=== PATIENT | male | born 1970 | race Caucasian/White ===

== ENCOUNTER → 2020-03-03 11:19 | Outpatient (CLI) | payer OTHER, SELFPAY ==
[2020-03-05 08:54] LABS: Covid-19 Nasal PCR Sendout Lex NOT DETECTED
--- NOTE | 2020-03-05 11:23 | PC.NURSE ---
0900-pt and provider notified of negative COVID 19 results.
== END ==
PROVIDERS: Visit Provider Internal Medicine Adolescent Medicine
DX: Z03.818 Encounter for observation for suspected exposure to other biological agents ruled out (principal)

== ENCOUNTER → 2020-10-31 08:54 | Outpatient (CLI) | payer OTHER, SELFPAY ==
[2020-10-31 09:27] LABS: Basophils # 0.1 K/mm3 (0-0.2); Basophils % 1.1 % (0.1-2.0); Eosinophils # 0.1 K/mm3 (0.0-0.4); Eosinophils % 1.6 % (0.1-12.0); Hematocrit 51.8 % (42.0-52.0); Hemoglobin 17.5 g/dL (14.1-18.0); Lymphocytes # 2.7 K/mm3 (0.7-4.5); Lymphocytes % 35.5 % (10-50); Mean Corpuscular HGB Conc 33.8 g/dL (31.8-35.4); Mean Corpuscular Hemoglobin 31.4 pg (27.0-31.2); Mean Corpuscular Volume 92.8 fl (80-94); Mean Platelet Volume 7.3 fl (7.4-10.4); Monocytes # 0.5 K/mm3 (0.1-1.0); Neutrophils # 4.2 K/mm3 (1.8-7.8); Neutrophils % 54.9 % (37.0-80.0); Platelet Count 310 K/mm3 (142-424); Red Blood Count 5.58 M/mm3 (4.60-6.20); Red Cell Distribution Width 13.2 % (11.5-17.5); White Blood Count 7.6 K/mm3 (4.8-10.8)
[2020-10-31 10:00] LABS: Alanine Aminotransferase 75 U/L (12-78); Albumin Level 4.7 g/dl (3.5-5.0); Albumin/Globulin Ratio 1.4 (1.1-1.8); Alkaline Phosphatase 71 U/L (38-126); Anion Gap 14.2 mEq/L (5-15); Aspartate Amino Transferase 53 U/L (17-59); Bilirubin,Total 1.5 mg/dl (0.2-1.3); Blood Urea Nitrogen 11 mg/dl (9-20); Calcium 9.9 mg/dl (8.4-10.2); Carbon Dioxide 28 mmol/L (22.0-30.0); Chloride 102 mmol/L (98-107); Chol/HDL Ratio 4.4 (1-3.5); Cholesterol 216 mg/dl (140-200); Estimated Glomerular Filt Rate 102 ml/min (>60); GFR (African American) 123 ML/MIN (>60); Globulin 3.3 g/dL (1.3-3.2); Glucose 100 mg/dl (74-100); HDL Cholesterol 49 mg/dl (40-60); Magnesium 2.1 mg/dl (1.6-2.3); Phosphorous 3.9 mg/dl (2.5-4.5); Potassium 4.2 mmoL/L (3.5-5.1); Sodium 140 mmol/L (136-145); Triglycerides 151 mg/dl (30-150); VLDL Cholesterol 30 mg/dL (0-40)
== END ==
PROVIDERS: Visit Provider Family Medicine
DX: Z00.00 Encounter for general adult medical examination without abnormal findings (principal); R00.2 Palpitations; Z13.1 Encounter for screening for diabetes mellitus; Z13.220 Encounter for screening for lipoid disorders
CPT/HCPCS: 36415; 80053; 80061; 83735; 84100; 84443; 85025

== ENCOUNTER 2021-07-13 09:44 | Outpatient (RCR) | payer OTHER, SELFPAY | END 2021-07-13 09:50 | disposition home or self-care (01) | LOC: OT 09:44 | PROVIDERS: Visit Provider Physical Medicine & Rehabilitation | DX: M25.512 Pain in left shoulder (principal) | CPT/HCPCS: 97014; 97140; 97166; G0283 ==

== ENCOUNTER → 2021-07-17 15:52 | Outpatient (CLI) | payer OTHER, SELFPAY | PROVIDERS: PCP Family Medicine; Visit Provider Physician Assistant | DX: Z01.812 Encounter for preprocedural laboratory examination (principal); Z11.52 Encounter for screening for COVID-19; S42.002D Fracture of unspecified part of left clavicle, subsequent encounter for fracture with routine healing | CPT/HCPCS: U0003 ==

== ENCOUNTER → 2021-08-12 11:06 | Outpatient (CLI) | payer OTHER, SELFPAY ==
--- NOTE | 2021-08-12 11:07 | NM_ITS ---
APPROVED REPORT Exam: Nuclear Stress Test Indication: A-FIB, HYPERLIPIDEMIA, FM HX, C.P., PALPATATIONS Patient Location: Outpatient Stress Tech: Maria De Jesus Martinez [place] Tech:Mckenna Jefferson ABDELRAHMAN RT(R)(N) Ht: 5 ft 8 in Wt: 211 lbs HR: 96 bpm BP: 135/96 mmHg BSA: 2.09 m2 BMI: 32.0 History: A-FIB, HYPERLIPIDEMIA, FM HX, C.P., PALPATATIONS PT COULD NOT DO PRONE IMAGES DUE TO BROKEN CLAVICLE AND RECENT SURGERY TO LT CLAVICLE JAGDEEP WAS HELD DOWN TO SIDE FOR ALL IMAGES Procedure: Patient received a 0.4 mg of intravenous Lexiscan, resting heart rate 96 bpm, resting blood pressure 135/96 mmHg, with Lexiscan maximum heart rate achived was 109 bpm which is Less than 85 % of the maximum predicted heart rate and blood pressure was 150/95 mmHg. With Lexiscan, patient denied any complaint of chest pain. Electrocardiogram Resting electrocardiogram shows sinus rhythm, with Lexiscan there is less than 1.[address] segment depression noted from the baseline EKG. The EKG portion of the Lexiscan is nondiagnostic. Cardiac Stress and Resting SPECT Images: Cardiac Stress and Resting SPECT images were obtained using technetium 99m Myoview 32.2 mCi stress and 10.28 mCi at rest. Gated SPECT for analysis of segmental wall motion and calculation of the ejection fraction also done. Prone images were not obtained due to patient factors. Cardiac stress and resting SPECT images show a fixed defect in the inferior wall with normal contractility is likely secondary to soft tissue attenuation, in addition there is another fixed defect involving the anterior apical wall with moderate hypokinesis is likely secondary to nontransmural myocardial scarring without significant alfredito-infarct ischemia. Computer derived ejection fraction is 43% with moderate anterior apical wall hypokinesis, right ventricle is mildly enlarged with normal contractility. Conclusion: 1. The EKG portion of the Lexiscan is nondiagnostic. 2. Scintigraphic evidence of nontransmural myocardial scarring involving the anterior apical wall, computer derived ejection fraction 43% with moderate anterior wall hypokinesis, right ventricle is mildly enlarged with normal contractility. 3. Abnormal Lexiscan Myoview study. Electronically signed by : Cleveland Sales MD 08/13/2021 10:56:52
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
--- NOTE | 2021-08-12 13:25 | CA_ITS ---
APPROVED REPORT Exam: Pharmacologic Technologist: Jenae Hameed, Ht: 5 ft 8 in Wt: 228 lbs BSA: 2.16 m2 HR: 96 bpm BP: 135/96 mmHg Indications: Afib Medical History Medications: Metoprolol,,,,, Gabapentin,,,,, Pantoprazole,,,,, Atorvastatin,,,,, TAMSULOSIN,,,,, Albuterol,,,,, Tramadol,,,,, AmiTRIPTYLINE,,,,, Stress Test Details Test: LEXISCAN HR Resting HR: 100 bpm Max Heart Rate (APMHR): 168.871674 bpm Max HR Achieved: 116 bpm Target HR (85% APMHR): 142.110000 bpm % of APMHR: 69.05 Recovery HR: 99 bpm BP Resting BP: 135/96 mmHg Max BP: 153/85 mmHg Recovery BP: 136.0/89.0 mmHg ECG Resting ECG: NSR, normal Clinical Exercise duration: 04:01 min Highest Stage Achieved: Stress ECG Conclusion Symptoms: Mild SOA and lightheadedness. No CP. Arrhythmias/Ectopy: Occ isolated PVC's. ST-T Changes: NS T wave changes. Conclusion: Unremarkable Lexiscan stress. Myoview images reported separately. Test Summary REST . . . . . . . Sitting REST 03:56 . . 100 . 135/ 96 . . Stage 1 . . . . . . . Cardiolite injected Stage 1 01:00 . . 110 . . . . Stage 2 01:00 . . 112 . 150/ 95 . . Stage 3 01:00 . . 98 . 138/ 93 . . Stage 4 01:00 . . 103 . 153/ 85 . . Stage 4 01:01 . . 103 . 153/ 85 . Stop exercise at 04:01 RECOVERY 01:00 . . 101 . 131/ 93 . . RECOVERY 02:00 . . 99 . 131/ 93 . . RECOVERY 03:00 . . 100 . 136/ 89 . . RECOVERY 03:17 . . 99 . 136/ 89 . . Electronically signed by : Cleveland Sales MD 08/13/2021 10:51:53
== END ==
PROVIDERS: PCP Family Medicine; Visit Provider Urology
DX: I48.0 Paroxysmal atrial fibrillation (principal); R00.2 Palpitations; E78.5 Hyperlipidemia, unspecified; Z87.891 Personal history of nicotine dependence; Z82.49 Family history of ischemic heart disease and other diseases of the circulatory system
CPT/HCPCS: 78452; 93017; 93270; 93306; A9502; J2785

== ENCOUNTER → 2021-08-30 09:49 | Outpatient (CLI) | payer OTHER, SELFPAY ==
[2021-08-30 10:18] LABS: Basophils # 0.1 K/mm3 (0-0.2); Basophils % 1.4 % (0.1-2.0); Eosinophils # 0.3 K/mm3 (0.0-0.4); Eosinophils % 3.4 % (0.1-12.0); Hematocrit 47.9 % (42.0-52.0); Hemoglobin 16.1 g/dL (14.1-18.0); Lymphocytes # 2.8 K/mm3 (0.7-4.5); Lymphocytes % 30.7 % (10-50); Mean Corpuscular HGB Conc 33.6 g/dL (31.8-35.4); Mean Corpuscular Hemoglobin 31.5 pg (27.0-31.2); Mean Corpuscular Volume 93.6 fl (80-94); Mean Platelet Volume 7.4 fl (7.4-10.4); Monocytes # 0.6 K/mm3 (0.1-1.0); Neutrophils # 5.4 K/mm3 (1.8-7.8); Neutrophils % 58.5 % (37.0-80.0); Platelet Count 386 K/mm3 (142-424); Red Blood Count 5.11 M/mm3 (4.60-6.20); Red Cell Distribution Width 13.1 % (11.5-17.5); White Blood Count 9.2 K/mm3 (4.8-10.8)
[2021-08-30 12:04] LABS: Anion Gap 13.8 mEq/L (5-15); Blood Urea Nitrogen 5 mg/dl (9-20); Calcium 9.4 mg/dl (8.4-10.2); Carbon Dioxide 29 mmol/L (22.0-30.0); Chloride 103 mmol/L (98-107); Estimated Glomerular Filt Rate 141 ml/min (>60); GFR (African American) 171 ML/MIN (>60); Glucose 89 mg/dl (74-100); Potassium 4.8 mmoL/L (3.5-5.1); Sodium 141 mmol/L (136-145)
== END ==
PROVIDERS: Visit Provider Nurse Practitioner Family
DX: Z01.812 Encounter for preprocedural laboratory examination (principal); Z11.52 Encounter for screening for COVID-19; R06.00 Dyspnea, unspecified; I20.8 Other forms of angina pectoris; I42.9 Cardiomyopathy, unspecified; R00.2 Palpitations; R42 Dizziness and giddiness; I10 Essential (primary) hypertension; R93.1 Abnormal findings on diagnostic imaging of heart and coronary circulation; R94.31 Abnormal electrocardiogram [ECG] [EKG]; R94.39 Abnormal result of other cardiovascular function study; I63.9 Cerebral infarction, unspecified; E66.9 Obesity, unspecified; Z68.33 Body mass index [BMI] 33.0-33.9, adult
CPT/HCPCS: 36415; 80048; 85025; C9803; U0003; U0005

== ENCOUNTER 2021-08-31 08:19 | Day surgery (SDC) | payer OTHER, SELFPAY ==
[2021-08-31] VITALS (14 sets, daily range): BP systolic 109–179; BP diastolic 65–99; PULSE 66–80; RESP 16–18; TEMP 36.3; O2SAT 92–98; BMI 33.3
--- NOTE | 2021-08-31 07:20 | IR_ITS ---
APPROVED REPORT Patient Location: Outpatient PROCEDURES Left heart catheterization Left ventriculogram Selective coronary angiogram INDICATION High risk abnormal Myoview, Chest pain Informed consent was obtained prior to the procedure. COMPLICATIONS NONE Estimated Blood Loss: LESS THAN 10 ML TECHNIQUE One percent lidocaine used to anesthetize the right anterior aspect of the wrist. The right radial artery was accessed via the Seldinger technique. A 6 Uzbek sheath was placed in the right radial artery. 2.5 mg of verapamil, 800 mcg of nitroglycerin, 1mg Lidocaine and 5000 U Heparin were given through the arterial sheath. The Poppa catheter and AR-2 guide catheter were also used to perform left heart catheterization, left ventriculogram and selective coronary angiogram. At the end of the procedure the sheath was removed good hemostasis was achieved using Traclet band, patient was transferred to the postop holding area in stable condition. ANGIOGRAPHIC RESULTS The left main artery Normal The left anterior descending artery Has a proximal 10 to 20% smooth stenosis and is unusual in its distal segment and then it stops short of the apex The circumflex artery Gives rise to a moderate ramus intermedius which has mild 10% luminal irregularities in the proximal segment with mild disease nothing greater than 10% in the nondominant circumflex artery The right coronary artery Is a dominant vessel and has a mid vessel smooth 20% concentric stenosis The NAGY ventriculogram reveals Slight LV dilatation with ejection fraction of 50% The left ventricular end-diastolic pressure 20 mmHg IMPRESSION Mild nonflow limiting coronary disease as described above Slight left ventricular dilatation with ejection fraction 50% Mildly elevated LVEDP PLAN 1. Medical management Electronically signed by : Giovanni Yu MD 08/31/2021 11:15:27
== END 2021-08-31 14:16 | disposition hospice, home (50) ==
LOC: CATHLAB 08:21
PROVIDERS: PCP Family Medicine; Visit Provider Internal Medicine
DX: I20.8 Other forms of angina pectoris (principal); I42.9 Cardiomyopathy, unspecified; R93.1 Abnormal findings on diagnostic imaging of heart and coronary circulation; R94.31 Abnormal electrocardiogram [ECG] [EKG]; I48.0 Paroxysmal atrial fibrillation
CPT/HCPCS: 93458; 99152; C1725; C1760; C1769; J1644; Q9967

== ENCOUNTER 2021-09-13 09:00 | Outpatient (RCR) | payer OTHER, SELFPAY | END 2021-09-13 09:05 | disposition home or self-care (01) | LOC: PT 09:00 | PROVIDERS: PCP Family Medicine; Visit Provider Physician Assistant | DX: S42.002G Fracture of unspecified part of left clavicle, subsequent encounter for fracture with delayed healing (principal); M89.8X1 Other specified disorders of bone, shoulder | CPT/HCPCS: 20560; 97010; 97014; 97016; 97110; 97140; 97163; G0283 ==

== ENCOUNTER → 2021-11-16 14:15 | Outpatient (CLI) | payer OTHER, SELFPAY | PROVIDERS: PCP Family Medicine; Visit Provider Nurse Practitioner | DX: Z20.822 Contact with and (suspected) exposure to COVID-19 (principal) | CPT/HCPCS: C9803; U0003; U0005 ==

== ENCOUNTER 2021-12-02 08:00 | Outpatient (RCR) | payer OTHER, SELFPAY | END 2021-12-02 08:05 | disposition home or self-care (01) | LOC: PT 08:00 | PROVIDERS: PCP Family Medicine; Visit Provider Physician Assistant | DX: S42.002G Fracture of unspecified part of left clavicle, subsequent encounter for fracture with delayed healing (principal) | CPT/HCPCS: 20561; 97010; 97014; 97016; 97035; 97110; 97140; 97163; 97164; G0283 ==

== ENCOUNTER 2021-12-04 14:47 | Emergency (ER) | payer OTHER, SELFPAY ==
[2021-12-04 16:25] VITALS: BP 0/0; PULSE 0; RESP 0; TEMP -17.7; TEMP 0
== END 2021-12-04 16:27 | disposition left against medical advice (07) ==
PROVIDERS: Emergency Provider Nurse Practitioner Family; PCP Family Medicine
DX: Z53.21 Procedure and treatment not carried out due to patient leaving prior to being seen by health care provider (principal)

== ENCOUNTER → 2021-12-04 16:45 | Outpatient (CLI) | payer OTHER, SELFPAY | PROVIDERS: Visit Provider Nurse Practitioner Family | DX: U07.1 COVID-19 (principal) | CPT/HCPCS: C9803; U0003; U0005 ==

== ENCOUNTER 2022-09-23 06:00 | Emergency (ER) | payer OTHER, SELFPAY ==
[2022-09-23] VITALS (8 sets, daily range): BP systolic 133–149; BP diastolic 88–100; PULSE 73–101; RESP 16–18; TEMP 36.8–37; O2SAT 95–99; BMI 32.2
--- NOTE | 2022-09-23 06:05 | CT_ITS ---
FINAL REPORT CLINICAL HISTORY: right sided abd pain, nausea, bloating FINDINGS: CT OF THE ABDOMEN AND PELVIS WITH CONTRAST Axial CT images of the abdomen and pelvis were obtained after the administration of intravenous contrast. Coronal reformatted images were also obtained and reviewed.This study was performed with techniques to keep radiation doses as low as reasonably achievable (ALARA). Individualized dose reduction techniques using automated exposure control or adjustment of mA and/or kV according to the patient's size were employed. Abdomen: There is mild bibasilar atelectasis. There is a small hiatal hernia. The heart is normal in size. The liver has mild fatty infiltration. There are multiple gallstones. There is mild nonspecific gallbladder wall thickening. The spleen is unremarkable. No adrenal mass is present. The pancreas has an unremarkable appearance. There are several small nonobstructing lower pole right renal stones measuring 5 mm or less. There is a 9 mm nonobstructing stone in the lower pole of the left kidney. A left renal cyst measures up to 17 mm. There is no hydronephrosis. The aorta is normal in caliber. There is no free fluid or adenopathy. There is a small umbilical hernia containing fat. Pelvis: The appendix is not well-visualized. The urinary bladder is unremarkable. No inflammatory process is seen. There is no evidence of mass or adenopathy. There is no evidence of bowel obstruction. IMPRESSION: Cholelithiasis with mild nonspecific gallbladder wall thickening. Bilateral nephrolithiasis without hydronephrosis. Left renal cyst. Mild fatty infiltration of the liver. Reviewed, Interpreted and Dictated by George Melchor III, MD Transcribed by Kenny Santana Authenticated and . [facility]
--- NOTE | 2022-09-23 06:19 | HMH.EDABDPAI ---
Discharge Plan Disposition Patient Disposition: Home, Self-Care Condition: Good Referrals Follow up/Referrals: Thaddeus Hanna MD [Primary Care Provider] - See instructions George Cheng MD [Staff Physician] - See instructions Activity Restrictions/Add. Instructions Additional Instructions/Restrictions: At this time was felt you are safe to be discharged from the emergency department. If new or worsening symptoms please do not hesitate to return for continued evaluation. Please take your medications as prescribed. Please call and schedule an appointment for general surgery evaluation in the coming days at your earliest convenience for continued evaluation. Clinical Impressions Clinical Impression: Symptomatic cholelithiasis Stand Alone Forms Stand Alone Forms: Work/School Release Instructions Patient Instructions: DI for Acute Abdominal Pain Discharge ED Provider: Corey Todd Abdominal Pain HPI <Analy Roe MD - Last Filed: 10/04/22 08:07> General Chief Complaint: Abdominal Pain Stated Complaint: upper abd pain Time Seen by Provider: 09/23/22 06:19 History of Present Illness HPI narrative: Mr. Travis is a 50-year-old male past medical history for appendectomy, HTN, HLD, CAD, A. fib, nephrolithiasis status post lithotripsy presenting to the emergency department with acute onset right-sided abdominal pain. Patient denies any bowel changes or urinary symptoms. No fevers, chills or other infectious-like symptoms. Denies any sick contacts or known COVID exposures. No bloody stools. No episodes of emesis. Denies any recent trauma to the abdomen. Of note patient reports feels similar to prior renal stones. MD complaint: abdominal pain Onset (ago): day(s) Consistency: constant Severity: severe Quality: sharp Relieving factors: nothing Exacerbating factors: nothing Associated symptoms: nausea Related Data Allergies Allergy/AdvReac Type Severity Reaction Status Date / Time Iodine and Iodide Containing Allergy Rash Verified 09/27/22 08:50 Produc PFSH <Analy Roe MD - Last Filed: 10/04/22 08:07> PFSH Medical History (Updated 09/27/22 @ 09:19 by George Cheng MD) Abnormal cardiovascular stress test Abnormal echocardiogram Abnormal electrocardiography Atypical angina Cardiomyopathy Dizziness Dyspnea History of fracture of clavicle Obesity Palpitations Surgical History (Updated 09/27/22 @ 08:51 by NABOR Clemons) History of appendectomy Social History Smoking Status: Current every day smoker second hand exposure: No alcohol intake: never current occupational status: employed Travel in the last 8 weeks: None household members: spouse housing: house current occupational exposures/hazards: Yes caffeine: Yes <Analy Roe MD - Last Filed: 10/04/22 08:07> ROS Obtained: Yes All systems reviewed & no additional complaints except as documented Physical Exam <Analy Roe MD - Last Filed: 10/04/22 08:07> General General appearance: alert and in no apparent distress Head Head exam: atraumatic and normocephalic Eye Eye exam: Present normal appearance and EOMI ENT ENT exam: Present normal exam and normal oropharynx Neck Neck exam: Present normal inspection and full ROM Chest Chest inspection: Present normal inspection and symmetric chest wall rise Respiratory Respiratory exam: Present normal lung sounds bilaterally Cardiovascular Cardiovascular exam: Present regular rate and normal rhythm Abdominal Exam Abdominal exam: Present soft and tenderness (Right-sided abdominal tenderness. Nonperitonitic. No rebound or guarding.) Back Exam Back exam: Present normal inspection and full ROM Neurological Exam Neurological exam: Present alert and oriented X3 Skin Skin exam: Present warm and normal color Medical Decision Making <Analy Roe MD - Last Filed: 10/04/22 08:07> Medical Records [facility]
[2022-09-23 06:28] LABS: Microscopic, Urine URINE MICROSCOPIC (MICROSCOPIC)
[2022-09-23 06:34] LABS: Appearance,Urine CLEAR (Clear); Bilirubin,Urine Negative (Negative); Blood, Urine Negative (Negative); Color,Urine DK YELLOW (Yellow); Glucose,Urine (UA) Negative (Negative); Ketones,Urine Negative (Negative); Leukocyte Esterase,Urine Negative (Negative); Nitrate,Urine Negative (Negative); PH,Urine 6.5 (5.0-8.5); Protein,Urine Negative (Negative); Specific Gravity, Urine 1.025 (1.005-1.030); Urobilinogen,Urine 0.2 EU/dl (0.2)
[2022-09-23 06:38] LABS: Alanine Aminotransferase 62 U/L (12-78); Albumin Level 5.1 g/dl (3.5-5.0); Albumin/Globulin Ratio 1.5 (1.1-1.8); Alkaline Phosphatase 96 U/L (38-126); Anion Gap 17.9 mEq/L (5-15); Aspartate Amino Transferase 57 U/L (17-59); Bilirubin,Total 1.5 mg/dl (0.2-1.3); Blood Urea Nitrogen 8 mg/dl (9-20); Carbon Dioxide 28 mmol/L (22.0-30.0); Chloride 101 mmol/L (98-107); Creatinine Clearance Estimated 166 mL/min (50-200); Estimated Glomerular Filt Rate 118 ml/min (>60); GFR (African American) 143 ML/MIN (>60); Globulin 3.5 g/dL (1.3-3.2); Glucose 120 mg/dl (74-100); Lipase 107 U/L (23-300); Potassium 3.9 mmoL/L (3.5-5.1); Sodium 143 mmol/L (136-145); Total Protein,Serum 8.6 g/dl (6.3-8.2)
[2022-09-23 06:39] LABS: Lactic Acid 2.8 mmol/L (0.7-2.1)
[2022-09-23 06:56] LABS: Amorphous Sediment,Urine 1+ /lpf; Bacteria,Urine Trace /lpf; RBC,Urine Occasional #/hpf (0-3)
--- NOTE | 2022-09-23 07:03 | PC.NURSE ---
pt to ct at this time
[2022-09-23 07:13] LABS: Basophils # 0.2 K/mm3 (0-0.2); Basophils % 1.2 % (0.1-2.0); Eosinophils # 0.1 K/mm3 (0.0-0.4); Hematocrit 51.7 % (42.0-52.0); Hemoglobin 17.1 g/dL (14.1-18.0); Lymphocytes # 2.4 K/mm3 (0.7-4.5); Lymphocytes % 17.1 % (10-50); Mean Corpuscular Hemoglobin 31.2 pg (27.0-31.2); Mean Corpuscular Volume 94.6 fl (80-94); Mean Platelet Volume 7.8 fl (7.4-10.4); Monocytes # 0.6 K/mm3 (0.1-1.0); Monocytes % 4.1 % (1.7-9.3); Neutrophils # 10.9 K/mm3 (1.8-7.8); Neutrophils % 76.6 % (37.0-80.0); Platelet Count 369 K/mm3 (142-424); Red Blood Count 5.46 M/mm3 (4.60-6.20); Red Cell Distribution Width 13.3 % (11.5-17.5); White Blood Count 14.2 K/mm3 (4.8-10.8)
--- NOTE | 2022-09-23 08:00 | US_ITS ---
FINAL REPORT CLINICAL HISTORY: RUQ pain FINDINGS: ULTRASOUND RIGHT UPPER QUADRANT Sonographic imaging of the right upper quadrant was obtained. The pancreas is partially obscured. There is increased echogenicity of the liver consistent with fatty infiltration. There are echogenic foci in the gallbladder, some of these likely show shadowing and are consistent with stones. There may also be gallbladder polyps. There is no gallbladder wall thickening. There is no biliary ductal dilatation. The common duct is normal at 5 mm. The right kidney measures 11.7 cm in length. There are presumed stone in the lower pole. IMPRESSION: Fatty liver. Echogenic foci in the gallbladder, some likely consistent with gallstones and some may be polyps. Presumed right renal stones. Reviewed, Interpreted and Dictated by George Melchor III, MD Transcribed by Jade Watson Authenticated and [facility]
--- NOTE | 2022-09-23 08:00 | PC.NURSE ---
ED MD AT BEDSIDE TO DISCUSS POC AND DISCHARGE
--- NOTE | 2022-09-23 08:07 | PC.NURSE ---
PT TO US AT THIS TIME VIA WC
--- NOTE | 2022-09-23 08:47 | PC.NURSE ---
PT RETURNED FROM US
--- NOTE | 2022-09-23 08:58 | PC.NURSE ---
DR. VALDEZ AT BEDSIDE TO EVALUATE PT
--- NOTE | 2022-09-23 09:16 | PC.NURSE ---
ROUNDED ON PT, SWABBED FOR COVID AND FLU. PT WITHOUT NEEDS AT THIS TIME
[2022-09-23 09:17] LABS: Coronavirus 19, PCR Not Detected (NotDetected); Influenza A, PCR Not Detected (NotDetected); Influenza B, PCR Not Detected (NotDetected)
--- NOTE | 2022-09-23 09:26 | PC.NURSE ---
SAROJ LAI explained results to pt at BS and POC. Pt doing PO challenge with grant mist at this time.
--- NOTE | 2022-09-23 10:11 | PC.NURSE ---
pt tolerated PO intake, denies pain or nausea at this time, notified ER
[2022-09-23 10:25] LABS: Reflex Lactic Add Lactic Reflex
== END 2022-09-23 10:25 | disposition home or self-care (01) ==
PROVIDERS: Student in an Organized Health Care Education/Training Program; Emergency Provider Emergency Medicine; PCP Family Medicine
DX: K80.80 Other cholelithiasis without obstruction (principal); Z87.19 Personal history of other diseases of the digestive system; Z72.0 Tobacco use; I10 Essential (primary) hypertension; E78.5 Hyperlipidemia, unspecified; I25.10 Atherosclerotic heart disease of native coronary artery without angina pectoris; I48.91 Unspecified atrial fibrillation
CPT/HCPCS: 74177; 76705; 80053; 81001; 83605; 83690; 85025; 96365; 96375; 96376; 99284; C9803; Q9967; U0003; U0005

== ENCOUNTER 2024-11-10 13:33 | Emergency (ER) | payer BC, SELFPAY ==
[2024-11-10 14:11] VITALS: BP 143/99; PULSE 103; RESP 18; TEMP 37.1; O2SAT 97; BMI 31.8
--- NOTE | 2024-11-10 14:19 | EXP.UTC ---
Discharge Plan Disposition Patient Disposition: Home, Self-Care Condition: Good Prescriptions Prescriptions: New guaifenesin 400 mg tablet 400 mg PO Q4H PRN (Reason: cough) Qty: 60 0RF Referrals Follow up/Referrals: Thaddeus Hanna MD [Primary Care Provider] - See instructions Activity Restrictions/Add. Instructions Additional Instructions/Restrictions: Take medication as prescribed. Tylenol/Ibuprofen as needed for pain/fever. Call back in morning for flu/covid results. If symptoms persist or worsen, return to clinic/PCP. If you become short of air, go to the ER. Clinical Impressions Clinical Impression: Viral upper respiratory tract infection Stand Alone Forms Stand Alone Forms: Work/School Release Instructions Patient Instructions: DI for Viral Upper Respiratory Infection -- Adult Print Language Print Language: Stateless Discharge ED Provider: Earnestine Ansari [facility] [place] HPI General Stated complaint: congestion, cough Mode of Arrival: Ambulatory Source of Information: Patient Time Seen by Provider: 11/10/24 14:19 Description of Symptoms (Recalled from Triage Doc. by RN): BAD COUGH, CONGESTION, FEVER OF 102, EXP TO FLU A BY FAMILY HEENT Symptoms (Recalled from RN notes): Yes Resp Symptoms (Recalled from RN notes): Yes Skin Symptoms (Recalled from RN notes): No MS Symptoms (Recalled from RN notes): No Functional Status (Recalled from RN notes): WNL History of Present Illness Provider Complaint: Pt report that he started having cough and fever last night. He reports a fever up to 102 and has taken Tylenol. He reports family has flu. Related Data Previous Rx's ?Medication ?Instructions ?Recorded guaifenesin 400 mg tablet 400 mg PO Q4H PRN cough #60 tabs 11/10/24 Allergies Allergy/AdvReac Type Severity Reaction Status Date / Time Iodine and Iodide Containing Allergy Rash Verified 09/27/22 08:50 Produc Worker's Comp Is this a Worker's Comp case?: No [facility] Disclaimer: The information contained in this section may have been updated after the patient was seen, as this information can be updated by other users. Medical History (Updated 11/10/24 @ 14:31 by Earnestine Ansari APRN) History of fracture of clavicle Atypical angina Obesity Dizziness Cardiomyopathy Abnormal electrocardiography Abnormal echocardiogram Palpitations Abnormal cardiovascular stress test Dyspnea Surgical History (Updated 09/27/22 @ 08:51 by NABOR Clemons) History of appendectomy Social History Smoking Status: Current every day smoker second hand exposure: No alcohol intake: never current occupational status: employed Travel in the last 8 weeks: None household members: spouse housing: house current occupational exposures/hazards: Yes caffeine: Yes Have you lived/traveled outside [place] in past 30 days?: No Contact w/someone who lives/traveled outside [place] past 30 days?: No Exposure to someone with infectious disease in past 14 days?: No Do you have a fever (greater than 100.4 F or 38 C)?: No Have you tested positive for COVID-19: No Exposed to someone with COVID-19 in past 14 days?: No Do you have a sore throat?: Yes Do you have a cough?: Yes Do you have any weakness?: No Do you have any diarrhea?: No Are you experiencing any unusual bleeding?: No Do you have any muscle aches/pain?: No Do you have any abdominal pain?: No Are you experiencing loss of taste or smell?: No ROS Obtained: Yes All systems reviewed & no additional complaints except as documented Constitutional Constitutional: Reports system reviewed and no additional complaints, except as documented, Reports chills, Reports fever(s) and Reports malaise Eyes Eyes: Reports system reviewed and no additional complaints, except as documented ENT Ears, Nose, Mouth, and Throat: Reports system reviewed and no additional complaints, except as documented and Reports nasal discharge Cardiovascular Cardiovascular: Reports system reviewed and no additional complaints, except as documented Respiratory Respiratory: Reports system reviewed and no additional complaints, except as documented and Reports non-productive cough Gastrointestinal Gastrointestingal: Reports system reviewed and no additional complaints, except as documented Genitourinary Male Genitourinary: Reports system reviewed and no additional complaints, except as documented Musculoskeletal Musculoskeletal: Reports system reviewed and no additional complaints, except as documented Integumentary/Breasts Skin/Breast: Reports system reviewed and no additional complaints, except as documented Neurologic Neurologic: Reports system reviewed and no additional complaints, except as documented Endocrine Endocrine: Reports system reviewed and no additional complaints, except as documented Hematologic/Lymphatic Henatologic/Lymphatic: Reports system reviewed and no additional complaints, except as documented Allergic/Immunologic Allergic/Immunologic: Reports system reviewed and no additional complaints, except as documented Physical Exam General General appearance: alert Comment: ill appearing Head Head exam: atraumatic and normocephalic Eye Eye exam: Present normal appearance Expanded ENT Exam External ear exam: Present normal external inspection Nasal speculum exam: Bilateral: normal Mouth exam: Present normal external inspection Teeth exam: Present normal inspection Throat exam: Present normal inspection Neck Neck exam: Present normal inspection Chest Chest inspection: Present normal inspection and symmetric chest wall rise Respiratory Respiratory exam: Present normal lung sounds bilaterally and other (strong cough noted) Cardiovascular Cardiovascular exam: Present regular rate and normal rhythm Abdominal Exam Abdominal exam: Present soft Extremities Exam Extremities exam: Present normal inspection Back Exam Back exam: Present normal inspection Neurological Exam Neurological exam: Present alert and oriented X3 Psychiatric Psychiatric exam: Present normal affect and normal mood Skin Skin exam: Present warm, dry and intact Lymphatic Lymphatic Findings: no adenopathy Medical Decision Making Medical Records Screening: Per USPSTF and CDC recommendations, given the prevalence of disease in our region, it is our hospital?s policy to screen for HIV and viral Hepatitis for all patients aged 18 and over and those with ongoing risk factors. Trevor Inquiry Pt receiving controlled substance: No Trevor was queried for this patient: No Vital Signs: 11/10/24 14:11 Temperature 98.8 F Temperature Source Oral Pulse Rate [Left Radial] 103 H Respiratory Rate 18 Blood Pressure [Left Arm] 143/99 H Blood Pressure Mean [Left Arm] 113 02 Sat by Pulse Oximetry 97 Lab Data Lab results reviewed: Yes I reviewed the patient's lab results.
[2024-11-10 14:25] LABS: UTC Influenza A Antigen Negative (Negative); UTC Influenza B Antigen Negative (Negative)
[2024-11-10 14:33] VITALS: BP 143/99; PULSE 103; RESP 18; TEMP 37.1
[2024-11-10 14:34] LABS: Coronavirus 19, PCR Not Detected (NotDetected); Influenza B, PCR Not Detected (NotDetected)
[2024-11-10 15:04] LABS: Influenza A, PCR Detected (NotDetected)
== END 2024-11-10 14:41 | disposition home or self-care (01) ==
PROVIDERS: Emergency Provider Nurse Practitioner Family; PCP Family Medicine
DX: J06.9 Acute upper respiratory infection, unspecified (principal)
CPT/HCPCS: 87636; 87804; 99213; G0381

== ENCOUNTER 2024-11-30 09:12 | Emergency (ER) | payer BC, SELFPAY ==
[2024-11-30] VITALS (35 sets, daily range): BP systolic 137–213; BP diastolic 82–121; PULSE 70–119; RESP 11–29; TEMP 36.7; O2SAT 86–100; BMI 31.1
--- NOTE | 2024-11-30 09:19 | XR_ITS ---
PROCEDURE INFORMATION: Exam: XR Left Ankle Exam date and time: 11/30/2024 9:41 AM Age: 53 years old Clinical indication: Injury or trauma; Fall; Blunt trauma; Ankle; Left; Additional info: Fall obvious deformity TECHNIQUE: Imaging protocol: Radiologic exam of the left ankle. Views: 3 or more views. COMPARISON: CR XR ANKLE LT MIN 3V 11/30/2024 9:41 AM FINDINGS: Bones/joints: Suspected trimalleolar fracture-visualized fracture of the medial malleolus and the posterior malleolus. Posterior dislocation of the talus in relation to the tibial plafond. Soft tissues: Swelling IMPRESSION: 1. Suspected trimalleolar fracture-visualized fracture of the medial malleolus and the posterior malleolus. 2. Posterior dislocation of the talus in relation to the tibial plafond.
--- NOTE | 2024-11-30 09:19 | XR_ITS ---
PROCEDURE INFORMATION: Exam: XR Left Tibia and Fibula Exam date and time: 11/30/2024 9:41 AM Age: 53 years old Clinical indication: Injury or trauma; Fall; Blunt trauma; Lower leg; Left; Additional info: Fall, obvious deformity TECHNIQUE: Imaging protocol: Radiologic exam of the left tibia and fibula. Views: 2 views. COMPARISON: CR XR ANKLE LT MIN 3V 11/30/2024 9:41 AM FINDINGS: Bones/joints: Severely comminuted distal tibial metaphyseal fracture with extension to the articular surface. Probable distal fibular fracture. Posterior dislocation of the talus in relation to the tibial plafond. Posterior malleolar fracture. The more proximal aspect of the tibia and fibula appear normal. Soft tissues: Extensive soft tissue swelling.. IMPRESSION: Severely comminuted distal tibial metaphyseal fracture with extension to the articular surface. Probable distal fibular fracture. Posterior dislocation of the talus in relation to the tibial plafond. Posterior malleolar fracture. Probable trimalleolar fracture.
--- NOTE | 2024-11-30 09:19 | CT_ITS ---
PROCEDURE INFORMATION: Exam: CT Left Lower Extremity, Ankle Exam date and time: 11/30/2024 10:16 AM Age: 53 years old Clinical indication: Injury or trauma; Fall; Blunt trauma; Ankle; Left; Additional info: Fall, obvious deformity, pre-op planning TECHNIQUE: Imaging protocol: CT of the left lower extremity without contrast was performed. Exam focused on the ankle. Radiation optimization: All CT scans at this facility use at least one of these dose optimization techniques: automated exposure control; mA and/or kV adjustment per patient size (includes targeted exams where dose is matched to clinical indication); or iterative reconstruction. COMPARISON: CT ANKLE LT WO CON 11/30/2024 10:16 AM FINDINGS: Bones/joints: Trimalleolar fracture including a comminuted distal tibial metaphyseal fracture with extension to the articular surface. No reconstructed images were provided. CT topogram demonstrates posterior dislocation of the talus in relation to the intact portions of the tibial plafond. Soft tissues: Soft tissue swelling IMPRESSION: Trimalleolar fracture including a comminuted distal tibial metaphyseal fracture with extension to the articular surface. No reconstructed images were provided. CT topogram demonstrates posterior dislocation of the talus in relation to the intact portions of the tibial plafond.
--- NOTE | 2024-11-30 09:19 | XR_ITS ---
PROCEDURE INFORMATION: Exam: XR Left Foot Exam date and time: 11/30/2024 9:41 AM Age: 53 years old Clinical indication: Injury or trauma; Fall; Blunt trauma; Foot; Left; Additional info: Fall, obvious deformity TECHNIQUE: Imaging protocol: Radiologic exam of the left foot. Views: 1 or 2 views. COMPARISON: CR XR FOOT LT 2V 11/30/2024 9:41 AM FINDINGS: Bones/joints: hindfoot-midfoot and midfoot-forefoot articulations are normal. metatarsals and the phalanges without an acute process. subtalar joint and the tibiotalar joint appears normal. Ankle fracture. See ankle radiographs Soft tissues: Early spur formation insertion of the plantar aponeurosis. IMPRESSION: Normal foot
[2024-11-30] MEDS: KETOROLAC 30MG/ML VIAL 15 MG IV (09:26)
[2024-11-30] MEDS: HYDROMORPHONE 2MG/ML SYRINGE 1 MG IV ×2 (09:26→09:55)
[2024-11-30] MEDS: ACETAMINOPHEN 1,000MG/100ML VIAL 1000 MG IV (09:26)
[2024-11-30] MEDS: ONDANSETRON 4MG/2ML VIAL 4 MG IV ×2 (09:26→12:50)
--- NOTE | 2024-11-30 09:43 | HMH.EDGENADL ---
Discharge Plan Disposition Patient Disposition: Home, Self-Care Prescriptions Prescriptions: New hydrocodone-acetaminophen 5-325 mg tablet 1 tab PO Q6H PRN (Reason: pain) Qty: 14 0RF ondansetron 4 mg tablet,disintegrating 4 mg PO Q6H PRN (Reason: nausea and vomiting) Qty: 10 0RF No Action guaifenesin 400 mg tablet 400 mg PO Q4H PRN (Reason: cough) Qty: 60 0RF Referrals Follow up/Referrals: Thaddeus Hanna MD [Primary Care Provider] - See instructions Neo Woodward DO [Staff Physician] - See instructions Activity Restrictions/Add. Instructions Additional Instructions/Restrictions: Call Dr. Woodward to schedule an appointment to follow-up for surgery. Remain nonweightbearing at all times. Do not get splint wet for any reason. Call your family doctor to establish care for this visit to the emergency department and schedule follow-up within 48 hours to ensure improvement. If you have any worsening of your condition or any other concerning signs or symptoms, return to the emergency department or your primary care doctor for further evaluation. Clinical Impressions Clinical Impression: Displaced trimalleolar fracture of left ankle Qualifiers: Encounter type: initial encounter Fracture type: closed Qualified Code(s): S82.852A - Displaced trimalleolar fracture of left lower leg, initial encounter for closed fracture Closed dislocation of ankle Qualifiers: Encounter type: initial encounter Laterality: left Qualified Code(s): S93.05XA - Dislocation of left ankle joint, initial encounter Instructions Patient Instructions: DI for Moderate Sedation, Moderate Sedation Print Language Print Language: Azerbaijani Discharge ED Provider: Guanaco Quan General Adult HPI General Chief complaint: Extremity Injury, Lower Stated complaint: anklr pain Time Seen by Provider: 11/30/24 09:15 Mode of Arrival: EMS Source of Information: Patient and EMS Limitations: No Limitations Description of Symptoms (Recalled from ER Triage Doc. by RN): left ankle injury. fall. denies any other injury. pulse palpable History of Present Illness HPI narrative: Please note that above description of symptoms, in this electronic medical record under categorization of recalled from ER triage doctor by RN are reflective of an initial nursing assessment, however, is not reflective of my full history and physical exam that was personally taken and clarified. Consequentially, this preceding description of symptoms, which may include the patient's categorized chief complaint in the EMR, do not reflect my personal clinical impression, and the ultimate description of history of present illness and patient stated complaints should be deferred to this section of the note. Unless stated otherwise or congruent with this section of the note, additional signs, symptoms, or incongruence should be interpreted as inaccurate with my clinical impression. Related Data Previous Rx's ?Medication ?Instructions ?Recorded guaifenesin 400 mg tablet 400 mg PO Q4H PRN cough #60 tabs 11/10/24 hydrocodone 5 mg-acetaminophen 325 1 tab PO Q6H PRN pain #14 tabs 11/30/24 mg tablet ondansetron 4 mg disintegrating 4 mg PO Q6H PRN nausea and 11/30/24 tablet vomiting #10 tabs Allergies Allergy/AdvReac Type Severity Reaction Status Date / Time Iodine and Iodide Containing Allergy Rash Verified 09/27/22 08:50 [facility] Disclaimer: The information contained in this section may have been updated after the patient was seen, as this information can be updated by other users. Medical History (Updated 11/30/24 @ 12:58 by Guanaco Quan MD) History of fracture of clavicle Atypical angina Obesity Dizziness Cardiomyopathy Abnormal electrocardiography Abnormal echocardiogram Palpitations Abnormal cardiovascular stress test Dyspnea Surgical History (Updated 09/27/22 @ 08:51 by NABOR Clemons) History of appendectomy Social History Smoking Status: Never smoker second hand exposure: No alcohol intake: never current occupational status: employed Travel in the last 8 weeks: None household members: spouse housing: house current occupational exposures/hazards: Yes caffeine: Yes Have you lived/traveled outside [place] in past 30 days?: No Contact w/someone who lives/traveled outside US past 30 days?: No Exposure to someone with infectious disease in past 14 days?: No Do you have a fever (greater than 100.4 F or 38 C)?: No Have you tested positive for COVID-19: No Exposed to someone with COVID-19 in past 14 days?: No Do you have a sore throat?: No Do you have a cough?: No Do you have any weakness?: No Do you have any diarrhea?: No Are you experiencing any unusual bleeding?: No Do you have any muscle aches/pain?: No Do you have any abdominal pain?: No Are you experiencing loss of taste or smell?: No Other Medical History Have you received the Flu Vaccine for this season: No Have you received the Pneumonia Vaccine: No ROS Obtained: Yes All systems reviewed & no additional complaints except as documented Physical Exam General General appearance: alert Head Head exam: atraumatic and normocephalic Eye Eye exam: Present normal appearance, PERRL and EOMI Neck Neck exam: Present normal inspection, full ROM and trachea midline Respiratory Respiratory exam: Absent respiratory distress, wheezes, stridor, accessory muscle use or prolonged expiratory phase Cardiovascular Cardiovascular exam: Present other (Pulses equal symmetric in upper and lower extremities) Abdominal Exam Abdominal exam: Present soft; Absent distention, tenderness or pulsatile mass Extremities Exam Extremities exam: Present edema and other (Tenderness, deformity distal aspect of left tib-fib at level of ankle. No tenderness about the foot or midfoot. Neurovascularly intact distally. Does have flexion and extension of all digits.) Neurological Exam Neurological exam: Present alert, oriented X3 and CN II-XII intact; Absent motor sensory deficit Skin Skin exam: Present warm and dry; Absent diaphoresis or erythema Medical Decision Making Medical Records Medical records reviewed: Yes I reviewed the patient's medical records. Screening: Per USPSTF and CDC recommendations, given the prevalence of disease in our region, it is our hospital?s policy to screen for HIV and viral Hepatitis for all patients aged 18 and over and those with ongoing risk factors. Trevor Inquiry Pt receiving controlled substance: No Trevor was queried for this patient: No Vital Signs: 11/30/24 09:12 11/30/24 09:12 11/30/24 09:14 Temperature 98.1 F Temperature Source Oral Pulse Rate 85 88 Pulse Rate [Right] 84 Respiratory Rate 20 Blood Pressure 140/86 Blood Pressure [Right Arm] 140/86 Blood Pressure Mean Blood Pressure Mean [Right Arm] 104 02 Sat by Pulse Oximetry 99 100 97 Oxygen Delivery Method Room Air Oxygen Flow Rate (LPM) 11/30/24 09:15 11/30/24 09:30 11/30/24 10:00 Temperature Temperature Source Pulse Rate 85 87 74 Pulse Rate [Right] Respiratory Rate 16 18 Blood Pressure 151/94 H 156/95 H Blood Pressure [Right Arm] Blood Pressure Mean 103 115 Blood Pressure Mean [Right Arm] 02 Sat by Pulse Oximetry 99 97 94 L Oxygen Delivery Method Oxygen Flow Rate (LPM) 11/30/24 10:30 11/30/24 11:00 11/30/24 11:06 Temperature 98.1 F Temperature Source Oral Pulse Rate 76 72 Pulse Rate [Right] 86 Respiratory Rate 18 11 L 16 Blood Pressure 158/93 H 160/102 H Blood Pressure [Right Arm] 160/102 H Blood Pressure Mean 114 Blood Pressure Mean [Right Arm] 121 02 Sat by Pulse Oximetry 98 97 97 Oxygen Delivery Method Nasal Cannula Nasal Cannula Oxygen Flow Rate (LPM) 2 11/30/24 11:07 11/30/24 11:07 11/30/24 11:10 Temperature Temperature Source Pulse Rate 70 Pulse Rate [Right] 91 H 97 H Respiratory Rate 14 16 14 Blood Pressure 174/104 H Blood Pressure [Right Arm] 174/104 H 199/119 H Blood Pressure Mean Blood Pressure Mean [Right Arm] 127 145 02 Sat by Pulse Oximetry 97 97 95 Oxygen Delivery Method Nasal Cannula Nasal Cannula Oxygen Flow Rate (LPM) 2 2 11/30/24 11:10 11/30/24 11:15 11/30/24 11:15 Temperature Temperature Source Pulse Rate 96 H 105 H Pulse Rate [Right] 111 H Respiratory Rate 29 H 12 19 Blood Pressure 199/119 H 193/121 H Blood Pressure [Right Arm] 193/121 H Blood Pressure Mean Blood Pressure Mean [Right Arm] 145 02 Sat by Pulse Oximetry 95 95 95 Oxygen Delivery Method Nasal Cannula Oxygen Flow Rate (LPM) 2 11/30/24 11:19 11/30/24 11:20 11/30/24 11:24 Temperature Temperature Source Pulse Rate 112 H 105 H Pulse Rate [Right] 119 H Respiratory Rate 14 12 20 Blood Pressure 213/119 H 184/114 H Blood Pressure [Right Arm] 213/119 H Blood Pressure Mean Blood Pressure Mean [Right Arm] 150 02 Sat by Pulse Oximetry 95 95 94 L Oxygen Delivery Method Nasal Cannula Oxygen Flow Rate (LPM) 2 11/30/24 11:25 11/30/24 11:30 11/30/24 11:30 Temperature Temperature Source Pulse Rate 75 Pulse Rate [Right] 105 H 75 Respiratory Rate 14 14 20 Blood Pressure 159/94 H Blood Pressure [Right Arm] 184/114 H 159/94 H Blood Pressure Mean Blood Pressure Mean [Right Arm] 137 115 02 Sat by Pulse Oximetry 95 95 95 Oxygen Delivery Method Nasal Cannula Nasal Cannula Oxygen Flow Rate (LPM) 2 2 11/30/24 11:35 11/30/24 11:35 11/30/24 11:39 Temperature Temperature Source Pulse Rate 76 79 Pulse Rate [Right] 75 Respiratory Rate 16 11 L 26 H Blood Pressure 178/94 H 158/95 H Blood Pressure [Right Arm] 178/94 H Blood Pressure Mean Blood Pressure Mean [Right Arm] 122 02 Sat by Pulse Oximetry 93 L 90 L 91 L Oxygen Delivery Method Nasal Cannula Oxygen Flow Rate (LPM) 4 11/30/24 11:40 11/30/24 11:43 11/30/24 11:44 Temperature Temperature Source Pulse Rate 75 Pulse Rate [Right] 81 75 Respiratory Rate 16 21 12 Blood Pressure 144/85 H Blood Pressure [Right Arm] 158/95 H 144/85 H Blood Pressure Mean Blood Pressure Mean [Right Arm] 116 104 02 Sat by Pulse Oximetry 93 L 88 L 93 L Oxygen Delivery Method Nasal Cannula Nasal Cannula Oxygen Flow Rate (LPM) 4 4 11/30/24 11:45 11/30/24 11:50 11/30/24 11:52 Temperature Temperature Source Pulse Rate 76 76 Pulse Rate [Right] 78 Respiratory Rate 24 14 20 Blood Pressure 146/93 H Blood Pressure [Right Arm] 146/93 H Blood Pressure Mean Blood Pressure Mean [Right Arm] 110 02 Sat by Pulse Oximetry 90 L 93 L 94 L Oxygen Delivery Method Nasal Cannula Oxygen Flow Rate (LPM) 4 11/30/24 12:00 11/30/24 12:00 11/30/24 12:30 Temperature Temperature Source Pulse Rate 76 73 Pulse Rate [Right] 76 Respiratory Rate 16 19 18 Blood Pressure 137/82 162/100 H Blood Pressure [Right Arm] 138/82 Blood Pressure Mean 115 Blood Pressure Mean [Right Arm] 100 02 Sat by Pulse Oximetry 94 L 91 L 96 Oxygen Delivery Method Nasal Cannula Oxygen Flow Rate (LPM) 4 11/30/24 12:40 11/30/24 12:41 11/30/24 12:50 Temperature Temperature Source Pulse Rate 75 78 Pulse Rate [Right] 74 Respiratory Rate 18 18 22 Blood Pressure 152/98 H 163/97 H Blood Pressure [Right Arm] 152/98 H Blood Pressure Mean 112 Blood Pressure Mean [Right Arm] 116 02 Sat by Pulse Oximetry 96 91 L 94 L Oxygen Delivery Method Nasal Cannula Oxygen Flow Rate (LPM) 2 11/30/24 13:00 11/30/24 13:15 Temperature Temperature Source Pulse Rate 77 83 Pulse Rate [Right] Respiratory Rate 14 25 H Blood Pressure 155/101 H Blood Pressure [Right Arm] Blood Pressure Mean Blood Pressure Mean [Right Arm] 02 Sat by Pulse Oximetry 90 L 88 L Oxygen Delivery Method Oxygen Flow Rate (LPM) Orders (Tests/Meds): ED MEDICATIONS Discontinued Medications Generic Name Dose Route Start Last Admin Trade Name Ashlyn PRN Reason Stop Dose Admin Acetaminophen 1,000 mg 11/30/24 09:19 11/30/24 09:26 Acetaminophen 1,000mg/100ml Vial IV 11/30/24 09:20 1,000 mg ONCE ONE Administration Hydromorphone HCl 1 mg 11/30/24 09:19 11/30/24 09:26 Hydromorphone 2mg/Ml Syringe IV 11/30/24 09:20 1 mg ONCE ONE Administration Hydromorphone HCl 1 mg 11/30/24 09:53 11/30/24 09:55 Hydromorphone 2mg/Ml Syringe IV 11/30/24 09:54 1 mg ONCE ONE Administration Ketamine HCl 150 mg 11/30/24 11:55 11/30/24 11:59 Ketamine 50mg/1ml Syringe IV 11/30/24 11:56 150 mg ONCE ONE Administration Ketorolac Tromethamine 15 mg 11/30/24 09:19 11/30/24 09:26 Ketorolac 30mg/Ml Vial IV 11/30/24 09:20 15 mg ONCE ONE Administration Ondansetron HCl 4 mg 11/30/24 09:19 11/30/24 09:26 Ondansetron 4mg/2ml Vial IV 11/30/24 09:20 4 mg ONCE ONE Administration Ondansetron HCl 4 mg 11/30/24 12:47 11/30/24 12:50 Ondansetron 4mg/2ml Vial IV 11/30/24 12:48 4 mg ONCE ONE Administration Propofol 100 mg 11/30/24 11:57 11/30/24 11:58 Propofol 10mg/Ml 20ml Vial IV 11/30/24 11:58 100 mg ONCE ONE Administration ORDERS Category Date Time Status CT ankle LT wo con Stat Cat Scan 11/30/24 09:19 Completed Ankle XR - Left 2 Views [XR ankle LT 2V] Stat Exams 11/30/24 11:09 Completed Ankle XR - Left 2 Views [XR ankle LT 2V] Stat Exams 11/30/24 11:49 Completed Ankle XR - Left minimum 3 Views [XR ankle LT min 3V] Exams 11/30/24 09:19 Completed Stat Fibula/tibia XR left 2 views [XR tibia fibula LT 2V] Exams 11/30/24 09:19 Completed Stat XR foot LT 2V Stat Exams 11/30/24 09:19 Completed HIV Combo Routine Lab 11/30/24 09:15 Ordered Medical Decision Narrative: 53-year-old male no relevant medical history presenting with left ankle deformity. Patient states that he was outside, slipped on the ice, had immediate pain in his leg and crawled back into the house. EMS was called. Brought him here. Patient received fentanyl prior to arrival and states that it helped modestly, but is now wearing off. No other trauma sustained. History was obtained via conversation with patient and EMS. On arrival, patient hemodynamically stable, alert, oriented x4, appropriate, GCS 15, moving all extremities spontaneously, pupils equal and reactive to light. Full physical exam performed and significant for patient has obvious deformity of his left ankle. Appears to be fractured and dislocated. Pulses intact distally, good capillary refill. He does have range of motion of his digits. No tenderness about the knee, proximal tib-fib. No other trauma sustained. It does not appear to be open. Differential includes fracture, fracture dislocation, neurovascular injury, among others. Patient placed on continuous cardiac monitoring and continuous pulse ox with initial blood pressure 140/86, heart rate 85, saturation 99% on room air. Patient was given 1 mg Dilaudid, Toradol, acetaminophen, Zofran for symptomatic management and correction of underlying abnormalities. Workup independently interpreted and significant for trimalleolar fracture dislocation of the left ankle. Patient was given another milligram of Dilaudid for imaging. Patient was consented and sedated with ketamine with reduction with splinting of left ankle fracture dislocation. Repeat images with concern for redislocation. I feel this is likely secondary to the amount of muscle tension in patient's leg. Patient was resedated with ketamine and propofol. Traction was applied, left ankle fracture dislocation was reduced and molded. See procedure note. Tight wrap applied until plaster cures. On reevaluation, patient dry heaving, Zofran administered. States that he feels much better, but still having pain in his leg. Crutches given for mobility. Repeat neurovascular exam once patient was little more awake intact, able to range his toes and sensation fully intact. Good capillary refill. Because patient at baseline without signs or symptoms of clinical decompensation, deemed appropriate for discharge. Results were relayed to patient who voiced understanding and were agreeable to outpatient management and follow up. I discussed my clinical impression with patient and answered all questions. At this time, the evidence for any other entities in the differential is insufficient to warrant any further testing or ED observation. This was explained as well. Advisory was given that persistent or worsening symptoms require further evaluation. I confirmed the understanding of this discussion. Telephone Lines Repairer disclaimer Much of this encounter note is an electronic shingle inspector spoken language to printed text. Electronic shingle inspector of the spoken language may permit errors. Although I have reviewed the note, some errors may still exist. Procedures Orthopedic Joint Reduction Joint #1: Time Out Performed: Yes Side: left Joint Reduction Location: ankle Analgesia: procedural sedation Local Anesthesia: other anesthetic (ketamine and propofol) Amount of anesthesic used (mL): 250 (150 ketamine, 100 propofol) Post-reduction neuro exam: intact and no change Post-reduction vascular: intact and no change Post Reduction X-Ray Obtained: Yes Post Reduction X-Ray Results: reduced Splint Applied: Yes (posterior short leg) Patient Tolerated Procedure: well Joint #2: Time Out Performed: Yes Side: left Joint Reduction Location: ankle Analgesia: procedural sedation Post-reduction neuro exam: intact and no change Post-reduction vascular: intact and no change Post Reduction X-Ray Obtained: Yes Post Reduction X-Ray Results: other (Initially reduced, redislocated during splint placement) Splint Applied: Yes Patient Tolerated Procedure: well Additional Comments: re-sedated for reduction, which was successful. See other orthopedic note. Procedural Sedation Presedation Evaluation: intact, no concerns A heart and lung assessment was performed on this patient at: 10:40 Mallampati Score:: Class II Indication: fracture/dislocation reduction ASA Class: III Preparation: pulse oximeter, capnometry used, supplemental O2 applied, suction/airway equipment at bedside and IV secured Ketamine: IV Ketamine dose (mg): 150 IV Propofol dose (mg): 100 Critical Care Critical Care Time Critical Care Time: No
--- NOTE | 2024-11-30 10:41 | PC.NURSE ---
CONSENT SIGNED BY , PT RECEIVED PAIN MEDICINE WITH EMS
--- NOTE | 2024-11-30 11:09 | XR_ITS ---
PROCEDURE INFORMATION: Exam: XR Left Ankle Exam date and time: 11/30/2024 11:12 AM Age: 53 years old Clinical indication: Injury or trauma and screening exam; Fall; Post reduction; Ankle; Left; Severity of dislocation not specified TECHNIQUE: Imaging protocol: Radiologic exam of the left ankle. Views: 1 or 2 views. COMPARISON: CT ANKLE LT WO CON 11/30/2024 10:16 AM FINDINGS: Bones/joints: Trimalleolar fracture with posterior dislocation of the talus in relation to the tibial plafond without significant change in positioning. Plaster splint. Soft tissues: Swelling. Plaster splint. IMPRESSION: Trimalleolar fracture with posterior dislocation of the talus in relation to the tibial plafond without significant change in positioning. Plaster splint.
--- NOTE | 2024-11-30 11:11 | PC.NURSE ---
XR AT BEDSIDE
--- NOTE | 2024-11-30 11:49 | XR_ITS ---
PROCEDURE INFORMATION: Exam: XR Left Ankle Exam date and time: 11/30/2024 11:49 AM Age: 53 years old Clinical indication: Injury or trauma and screening exam; Fall; Reduction; Ankle; Left; Severity of dislocation not specified TECHNIQUE: Imaging protocol: Radiologic exam of the left ankle. Views: 1 or 2 views. COMPARISON: CR XR ANKLE LT 2V 11/30/2024 11:12 AM FINDINGS: Bones/joints: Status post reduction, improved alignment of the comminuted, displaced trimalleolar ankle fracture. No adverse interval change. Soft tissues: Overlying splint limits evaluation of soft tissues and fine bony detail. IMPRESSION: Status post reduction, improved alignment of the comminuted, displaced trimalleolar ankle fracture. No adverse interval change.
[2024-11-30] MEDS: PROPOFOL 10MG/ML 20ML VIAL 100 MG IV (11:58)
[2024-11-30] MEDS: KETAMINE 50MG/1ML SYRINGE 150 MG IV (11:59)
--- NOTE | 2024-11-30 12:37 | PC.NURSE ---
PT REPOSITIONED IN BED, CALL LIGHT WITHIN REACH. NO FURTHER NEEDS AT THIS TIME
[2024-11-30] MEDS: ONDANSETRON 4MG ODT 4 MG SL (14:15)
== END 2024-11-30 14:03 | disposition home or self-care (01) ==
PROVIDERS: Emergency Provider Emergency Medicine; PCP Family Medicine
DX: S82.852A Displaced trimalleolar fracture of left lower leg, initial encounter for closed fracture (principal); S93.05XA Dislocation of left ankle joint, initial encounter; M25.572 Pain in left ankle and joints of left foot; W00.0XXA Fall on same level due to ice and snow, initial encounter; Y93.89 Activity, other specified; Y92.007 Garden or yard of unspecified non-institutional (private) residence as the place of occurrence of the external cause
CPT/HCPCS: 27842; 73590; 73600; 73610; 73620; 73700; 96374; 96375; 99152; 99153; 99284; J0131; J1171; J1885; J2405; Q0162

== ENCOUNTER 2024-12-02 14:18 | Outpatient (CLI) | payer BC, SELFPAY ==
--- NOTE | 2024-12-02 14:21 | XR_ITS ---
FINAL REPORT CLINICAL HISTORY: Lt Ankle Pain COMPARISON: 11/30/2024 FINDINGS: LEFT ANKLE 3 views of the left ankle again show a distal fibular fracture and medial malleolar fracture. There is new lateral subluxation and widening of the ankle mortise. There is also a posterior malleolar fracture. There is significant displacement of the posterior malleolar fracture measuring up to 6 mm which has increased from the prior exam. IMPRESSION: Fracture subluxation with increasing subluxation and fracture displacement. Reviewed, Interpreted and Dictated by Faiza Garibay MD Transcribed by Katie Sutton Authenticated and [facility]
== END 2024-12-02 23:59 | disposition home or self-care (01) ==
LOC: RAD 14:19
PROVIDERS: PCP Family Medicine; Visit Provider Physician Assistant
DX: M25.572 Pain in left ankle and joints of left foot (principal); S82.852A Displaced trimalleolar fracture of left lower leg, initial encounter for closed fracture
CPT/HCPCS: 73610

== ENCOUNTER 2024-12-03 12:09 | Outpatient (CLI) | payer BC, SELFPAY ==
--- NOTE | 2024-12-03 12:39 | ECG_ITS ---
APPROVED REPORT Exam: Resting ECG HR:85 bpm ECG Measurements Heart Rate 85 AXES MT 149 P 37 QRSd 102 QRS -16 QT 393 T 46 QTc 436 Conclusion SINUS RHYTHM WITH OCCASIONAL VENTRICULAR PREMATURE COMPLEXES BORDERLINE ECG UNCONFIRMED REPORT Electronically signed by : Vargas Alvarez MD 12/03/2024 20:06:27
[2024-12-03 12:47] VITALS: BMI 31.1
[2024-12-03 13:04] LABS: Chloride 103 mmol/L (98-107); Eosinophils # 0.1 K/mm3 (0.0-0.4); Lymphocytes # 1.8 K/mm3 (0.7-4.5); Monocytes # 0.8 K/mm3 (0.1-1.0); Neutrophils # 6.8 K/mm3 (1.8-7.8); Potassium 3.2 mmoL/L (3.5-5.1); Sodium 137 mmol/L (136-145)
[2024-12-03 13:07] LABS: Anion Gap 14.2 mEq/L (5-15); Blood Urea Nitrogen 7 mg/dl (9-20); Carbon Dioxide 23 mmol/L (22.0-30.0); Creatinine Clearance Estimated 183 mL/min (50-200); Estimated Glomerular Filt Rate 140 ml/min (>60); GFR (African American) 169 ML/MIN (>60); Glucose 127 mg/dl (74-100)
[2024-12-03 13:12] LABS: Red Cell Distribution Width 13.2 % (11.5-17.5)
[2024-12-03 13:16] LABS: Basophils % 0.4 % (0.1-2.0); Eosinophils % 0.9 % (0.1-12.0); Hematocrit 43.5 % (42.0-52.0); Hemoglobin 14.9 g/dL (14.1-18.0); Lymphocytes % 18.5 % (10-50); Mean Corpuscular HGB Conc 34.3 g/dL (31.8-35.4); Mean Corpuscular Hemoglobin 30.2 pg (27.0-31.2); Mean Corpuscular Volume 88.2 fl (80-94); Mean Platelet Volume 9.6 fl (7.4-10.4); Monocytes % 8.1 % (1.7-9.3); Neutrophils % 71.9 % (37.0-80.0); Platelet Count 321 K/mm3 (142-424); Red Blood Count 4.93 M/mm3 (4.60-6.20); White Blood Count 9.5 K/mm3 (4.8-10.8)
== END 2024-12-03 23:59 | disposition home or self-care (01) ==
PROVIDERS: Nurse Anesthetist, Certified Registered; PCP Family Medicine; Visit Provider Orthopaedic Surgery
DX: Z01.810 Encounter for preprocedural cardiovascular examination (principal); I49.3 Ventricular premature depolarization; R94.31 Abnormal electrocardiogram [ECG] [EKG]
CPT/HCPCS: 80048; 85025; 93005

== ENCOUNTER 2024-12-04 12:06 | Day surgery (SDC) | payer BC, SELFPAY ==
[2024-12-04] VITALS (10 sets, daily range): BP systolic 119–150; BP diastolic 68–86; PULSE 80–92; RESP 15–20; TEMP 36.5–38; O2SAT 92–99; BMI 31.1
[2024-12-04] MEDS: LACTATED RINGERS 1000ML 1,000 ML 100 ML IV (12:56)
--- NOTE | 2024-12-04 13:21 | EXP.ANES.CKL ---
[facility] Disclaimer: The information contained in this section may have been updated after the patient was seen, as this information can be updated by other users. Medical History Anterior displaced fracture of clavicle History of fracture of clavicle History of fracture of clavicle Atypical angina Obesity Dizziness Cardiomyopathy Abnormal electrocardiography Abnormal echocardiogram Palpitations Abnormal cardiovascular stress test Dyspnea Surgical History History of appendectomy Family History Other Family history of LA (myocardial infarction) Family history of heart disease Social History Smoking Status: Never smoker second hand exposure: No alcohol intake: never substance use type: denies use current occupational status: employed Travel in the last 8 weeks: None household members: spouse housing: house current occupational exposures/hazards: Yes caffeine: Yes [facility] Anesthesia Checklist Patient Identification Patient Identification: Arm Band and Verbal (Name & ) Structural Data Admitted From: Home Planned Operative Procedure/s: ORIF L ankle Consent for Planned Operative Procedure(s) Verified: Yes Verified Documents: Surgical Consent and History and Physical NPO Status Verified Time NPO: 00:00 Chart Verification Results Verified: ECG Additional verifications Anesthesia Reactions: No Hx Blood Transfusions: No Blood Transfusion Reaction: No Airway Assessment Mallampati Score:: Class II C-Spine Mobility Assessed: Yes TMJ Mobility Assessed: Yes Dentition: Edentulous Neurological Assessment Level of Consciousness: Awake Hx Seizures: No Numbness or tingling in extremities: No Anesthesia Plan Anesthesia Risk discussed: Yes Anesthesia Plan: Verified ASA Class: II Anesthesia Type: General w/block
[2024-12-04] MEDS: CEFAZOLIN SODIUM 2 GM in 0.9 % SODIUM CHLORIDE 100 ML IV (14:47)
--- NOTE | 2024-12-04 16:12 | XR_ITS ---
FINAL REPORT CLINICAL HISTORY: orif lt ankle in or 1.49 min 3.58 mGy COMPARISON: None FINDINGS: FLUOROSCOPY LESS THAN 1 HOUR HISTORY: FINDINGS: Fluoroscopic guidance was provided for ORIF left ankle fractures. 3 spot films were obtained. 1.49 minutes of fluoroscopy time were used, with a dosage of 3.58 mGy. IMPRESSION: As above. Reviewed, Interpreted and Dictated by Faiza Garibay MD Transcribed by Janell Ochoa Authenticated and . [facility]
--- NOTE | 2024-12-04 16:39 | P.OP_ITS ---
Date of procedure: 12/04/24 Pre-op Diagnosis:: Left trimalleolar ankle fracture following left ankle fracture dislocation Post-op Diagnosis:: Same Procedure performed:: Open reduction internal fixation left trimalleolar fracture, ankle, with fixation of posterior malleolus fragment Surgeon:: Neo Woodward DO SUPERVIS[address] ADMINISTRATOR:: Matteo Pelayo Anesthesia: GETA and regional Estimated blood loss (mL): 0 Clinical Note:: Implants Synthes fibular plating system 4 oh cannulated screws medial malleolus and anterior to posterior and distal tibia Operative findings:: See dictation Operative note:: Patient notified preoperatively left ankle marked with yes my initials. Underwent a block with anesthesia for regional block taken the operating room placed upon operating bed general anesthesia administered and airway secured. Then placed supine on the radiolucent operating bed left lower extremity was prepped and draped normal sterile fashion. Once prepped and draped final operat marian timeout performed to identify proper patient procedure and extremity. Everyone involved the case agreed. There were no counter indications to beginning. Did receive preoperative antibiotics. X-rays brought into identify the fracture of the ankle there is trimalleolar ankle fracture present. Bony landmarks were marked plan incision over the lateral malleolus was marked Esmarch was used exsanguinate extremity pneumatic tourniquet inflated to 300 mmHg. Skin knife was used incise through skin dissection is taken down to identify the fibula fracture. Soft tissue interposition was removed with a rongeur irrigation performed edges of the fracture clean pulmonary reduction performed with a lobster claw clamp x-ray brought in to show anatomic reduction of the fibula and then anterior to posterior lag screw was placed. Synthes fibular plate was selected cortical screws placed proximally locking screws placed distally for good fixation of the lateral malleolus fracture. Attention was then brought to the medial malleolus Significant swelling present on the medial malleolus therefore percutaneous treatment was utilized with placement of guidewires under direct visualization with the x-ray into the medial malleolus to 4.0 mm cannulated screws were placed size 42 mm for fixation of the medial malleolus fragment. Attention was then brought to the posterior malleolus fragment and the guidewire under direct visualization on the x-ray was placed from anterior to posterior fashion through the fragment posteriorly and two 4.0 mm cannulated screws were placed in converging anterior to posterior direction in order to fixate posterior malleolus fragment. Ankle was stable with range of motion there is no subluxation posteriorly of the talus Irrigation of the wound performed deep layers closed with Vicryl stitch subcutaneous Vicryl stitch surgical clips in the skin for closure posterior splint and stirrup splint was placed. Patient will be anesthesia taken recovery stable condition Condition: stable Disposition: PACU Complications:: None apparent
--- NOTE | 2024-12-04 16:42 | EXP.ANES.I ---
[facility] Anesthesia Record Part I Anesthesia Record I Intake, IV Amount: 1,000 Hydration: Adequate Estimated blood loss (mL): 25 Urine output (mL): 0 Blood Pressure: 120/75 SaO2: 93 Pulse Rate: 92 Airway Patency: Patent Respiratory Rate: 20 Temperature: 98.1 F Patient is:: Drowsy Stable to PACU at:: 16:48
--- NOTE | 2024-12-05 15:20 | EXP.ANES.II ---
[facility] Anesthesia Record Part II Anesthesia Record Part II Discharge Time: 17:08 Destination: Surgical Day Care (OP Surgery) PACU nurse assessment reviewed?: Yes Patient Condition:: Good Anesthesia Complications:: None Swallowing reflex intact?: Yes Airway Patency: Patent Cyanosis?: No Blood Pressure: 140/84 SaO2: 98 Respiratory Rate: 19 Pulse Rate: 85 Temperature: 97.9 F Mental Status: Alert & Oriented Pain level:: 0 Nausea and/or vomitting:: None Intake, IV Amount: 0 Hydration: Adequate
[2024-12-05 15:21] VITALS: BP 140/84; PULSE 85; RESP 19; TEMP 36.6; O2SAT 98
== END 2024-12-04 17:37 | disposition home or self-care (01) ==
PROVIDERS: PCP Family Medicine; Visit Provider Orthopaedic Surgery
PROC: (CPT 27823; principal; 2024-12-04 13:45)
DX: S82.852A Displaced trimalleolar fracture of left lower leg, initial encounter for closed fracture (principal); W00.0XXA Fall on same level due to ice and snow, initial encounter
CPT/HCPCS: 27823; 73600; 96374; C1713; C1776; J0131; J0690; J1100; J2250; J2405; J3010; J7120

== ENCOUNTER 2024-12-19 09:46 | Outpatient (CLI) | payer BC, SELFPAY ==
--- NOTE | 2024-12-19 09:49 | XR_ITS ---
FINAL REPORT CLINICAL HISTORY: lt ankle pain COMPARISON: 12/02/2024 FINDINGS: LEFT ANKLE 3 views of the left ankle were obtained. An overlying cast is present. There is a sideplate and screws securing the distal fibula. Two screws are noted in the medial malleolus. The mortise is intact. IMPRESSION: Interval internal fixation of medial and lateral malleolar fractures with reduction of the fracture fragments. Reviewed, Interpreted and Dictated by Brody Lau MD Transcribed by Carmen Sanders Authenticated and [facility]
== END 2024-12-19 23:59 | disposition home or self-care (01) ==
LOC: RAD 09:47
PROVIDERS: PCP Family Medicine; Visit Provider Orthopaedic Surgery
DX: M25.572 Pain in left ankle and joints of left foot (principal)
CPT/HCPCS: 73610

== ENCOUNTER 2025-01-02 09:28 | Outpatient (CLI) | payer BC, SELFPAY ==
--- NOTE | 2025-01-02 09:37 | XR_ITS ---
FINAL REPORT CLINICAL HISTORY: Left ankle orif dec 04 COMPARISON: 12/19/2024 FINDINGS: LEFT ANKLE: 3 views show evidence of an ORIF of the left ankle. There is a cortical plate in the distal fibula, with medial malleolar fracture screws. There is a comminuted fracture of the medial malleolus that remains present and is not significantly changed since the prior exam of 12/19/2024. The fibular fracture is not evident, which may be secondary to overlying hardware. No associated abnormalities are identified. IMPRESSION: Stable ORIF left ankle when compared to the prior exam of 12/19/2024. Reviewed, Interpreted and Dictated by Faiza Garibay MD Transcribed by Janell Ochoa Authenticated and [facility]
== END 2025-01-02 23:59 | disposition home or self-care (01) ==
LOC: RAD 09:28
PROVIDERS: PCP Family Medicine; Visit Provider Orthopaedic Surgery
DX: M25.572 Pain in left ankle and joints of left foot (principal); S82.852A Displaced trimalleolar fracture of left lower leg, initial encounter for closed fracture
CPT/HCPCS: 73610

== ENCOUNTER 2025-02-04 09:38 | Outpatient (CLI) | payer BC, SELFPAY ==
--- NOTE | 2025-02-04 09:41 | XR_ITS ---
FINAL REPORT CLINICAL HISTORY: Left ankle fx COMPARISON: 01/02/2025 FINDINGS: Three views of the left ankle show post-ORIF changes of the medial malleolus and distal fibula again noted. There is a comminuted medial malleolar fracture which is less distinct from the prior exam suggesting fracture healing. The posterior malleolus fracture is obscured by the fibular plate. Fibular fracture is not well-seen. IMPRESSION: Partial healing medial malleolar fracture with other fracture lines not well-seen. Reviewed, Interpreted and Dictated by Faiza Garibay MD Transcribed by Estefanía Prater Authenticated and [facility]
== END 2025-02-04 23:59 | disposition home or self-care (01) ==
LOC: RAD 09:38
PROVIDERS: PCP Family Medicine; Visit Provider Orthopaedic Surgery
DX: M25.572 Pain in left ankle and joints of left foot (principal); S82.852A Displaced trimalleolar fracture of left lower leg, initial encounter for closed fracture
CPT/HCPCS: 73610

== ENCOUNTER 2025-03-04 09:23 | Outpatient (CLI) | payer BC, SELFPAY ==
--- NOTE | 2025-03-04 09:25 | XR_ITS ---
FINAL REPORT CLINICAL HISTORY: Left ankle fracture follow-up COMPARISON: 02/04/2025 FINDINGS: AP, oblique, and lateral views of the left ankle were obtained. There are postoperative changes from ORIF of the distal tibia and fibula. The hardware is intact and unchanged. There has been some interval healing of the medial malleolar fracture. There is subtle subchondral lucency within the talar dome, which is stable. There continues to be mild diffuse soft tissue edema. IMPRESSION: Postoperative changes with some interval healing of the medial malleolar fracture. Subtle subchondral lucency in the talar dome. If there is clinical concern for AVN, recommend close follow-up. Reviewed, Interpreted and Dictated by Sanjuanita Godoy MD Transcribed by Carmen Sanders Authenticated and [facility]
== END 2025-03-04 23:59 | disposition home or self-care (01) ==
LOC: RAD 09:24
PROVIDERS: PCP Family Medicine; Visit Provider Physician Assistant
DX: S82.852D Displaced trimalleolar fracture of left lower leg, subsequent encounter for closed fracture with routine healing (principal)
CPT/HCPCS: 73610

== ENCOUNTER 2025-03-17 09:43 | Outpatient (RCR) | payer BC, SELFPAY ==
--- NOTE | 2025-03-17 12:26 | HMH.PTOPEV ---
PT Outpatient Evaluation Rehab PT Outpatient Evaluation Start: 03/17/25 09:48 Freq: Status: Active Protocol: Document 03/17/25 11:41 CLARENCE (Rec: 03/17/25 12:25 CLARENCE [id number]) E-signed By Parag Wilkinson, PT Outpatient Therapy Subjective History Subjective History Pt is a 54 yom who is referred to [facility] outpatient PT s/p L ORIF of L ankle performed on following a trimalleolar burst fx on 2024. Pt reports that he was cleared for weight bearing out of the walking boot on . Pt reports that he used a cane for a few days but has since been walking with no assistive device. Pt reports that he gets a sharp, stabbing pain on the medial side of his ankle frequently. Pt reports that he continues to deal with swelling. Pt reports his ankle often feels like it wants to give out. Pt reports that he was cleared to return to work on light duty, however, his job does not offer a light duty option. 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 He reports that he cannot return to work until he is able to climb the ladder into his equipment and operate the equipment. 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 Chief Complaint Pain,Stiff,Swelling Symptom Type Ache,Sharp,Stabbing Symptoms Relieved By Ice,OTC Meds Symptoms Aggravated By Standing,Physical Activity, Walking Prior Functional Limitations None Current Functional Limitations Housework,Dressing,Driving, Standing,Squatting,Recreation Activity,Walking,Stairs, Balance Symptom Description Constant but Variable,Activity Dependent Level of pain today (0-10) 6 Pain scale - at its best (0-10) 4 Pain scale - at its worst (0-10) 8 Ankle/Foot Eval Gait Observation General Gait Pattern Observation Antalgic Gait,Decrease Weight Bear (L),Decrease Stride Lngth (R) Assistive Device Ambulation Assistive Device None Palpation Tenderness left Ankle/Foot Palpation Findings Tenderness Ankle/Foot Palpation Overall Comment 2/4 TTP along medial L ankle ROM Ankle/Foot Dorsiflexion w/Knee Extended 8 Active Range Motion (degrees) Ankle/Foot Dorsiflexion w/Knee Extended 11 Passive Range (degrees) Ankle/Foot Plantar Flexion Active Range 25 of Motion (degrees) Ankle/Foot Plantar Flexion Passive Range 30 of Motion (degrees) Ankle/Foot Eversion Active Range of 10 Motion (degrees) Ankle/Foot Inversion Active Range of 8 Motion (degrees) Ankle/Foot ROM Limitations Soft Tissue Tightness,Pain MMT Ankle Dorsiflexion Strength Grade 2+ Poor+ Ankle Plantarflexion Strength Grade 2+ Poor+ Foot Eversion Strength Grade 2+ Poor+ Foot Inversion Strength Grade 2+ Poor+ Lower Extremity Functional Index Activities Today, do you or would you have any difficulty at all with: a.Any of your usual work, housework or Moderate difficulty school activities b. Your usual hobbies, recreational or Moderate difficulty sporting activities c. Getting into or out of the bath Moderate difficulty d. Walking between rooms Moderate difficulty e. Putting on your shoes or socks A little bit of difficulty f. Squatting A little bit of difficulty g. Lifting an object, like a bag of No difficulty groceries from the floor h. Performing light activities around A little bit of difficulty your home i. Performing heavy activities around Moderate difficulty your home j. Getting into or out of a car A little bit of difficulty k. Walking 2 blocks Quite a bit of difficulty l. Walking a mile Extreme difficulty or unable to perform activity m. Going up or down 10 stairs (about 1 Quite a bit of difficulty flight of stairs) n. Standing for 1 hour Moderate difficulty o. Sitting for 1 hour No difficulty p. Running on even ground Extreme difficulty or unable to perform activity q. Running on uneven ground Extreme difficulty or unable to perform activity r. Making sharp turns while running fast Extreme difficulty or unable to perform activity s. Hopping Extreme difficulty or unable to perform activity t. Rolling over in bed A little bit of difficulty LEFI Score Lower Extremity Functional Index Score 37 Miscellaneous Dx PT Eval Objective Objective Figure 8: 60.2 cm Outpatient Therapy Assessment Impairments Problems/Impairmments Palpation Tenderness,Impaired Range of Motion,Impaired Strength,Impaired Gait Pattern ,Impaired Walking,Impaired Standing,Impaired Driving, Impaired Stair Climbing, Impaired Work Activities, Impaired Balance,Subjective C/ O Pain Prognosis Rehab Potential Good Comment w HEP compliance Clinical Impression Consistent with Diagnosis Yes Consistent with s/p ORIF of L ankle Short Term Goals Number of Weeks 4 Decreased Palpation Tenderness Yes: 1/4 to TTP assessment Above Increase Range of Motion Yes: DF: 15 PF: 35 Eversion: 15 Inversion: 15 Increase Strength Yes: 3+/5 to L ankle grossly Improve Balance Yes: TS on even surface for 30s Improve LEFI Score Yes: >47 Decrease Subjective C/O Pain Yes: 5/10 with above assessment Patient to be Ind w/ HEP Yes Spindle Sander Goals Number of Weeks 8 Decreased Palpation Tenderness Yes: 0/4 to TTP Assessment Above Increase Range of Motion Yes: DF: 20 PF: 45 Eversion: 20 Inversion: 20 Increase Strength Yes: 4+/5 to L ankle grossly Improve Gait Pattern without Assistive Yes: Normalized Gait mechanics Device during ambulation Increase Ability to Stand Yes: 1 hour without increasing pain Improve Ability to Climb Stairs Yes: Flight of stairs with reciprocal stepping pattern Improve Tolerance to Work Activities Yes: Able to climb into heavy machinery and do normal job duties Improve LEFI Score Yes: >60 Decrease Subjective C/O Pain Yes: 2-310 with above assessment Patient to be Ind w/ Advanced HEP Yes Outpatient Therapy Plan of Care Treatment Plan May Include Therapeutic Exercise Including Home Yes Exercise Program Manual Therapy Techniques Yes Neuromuscular Re-education Yes Therapeutic Activities to Return to Yes Previous Functional/Work Level Gait Training Yes Thermal Modalities Yes Electrical Stimulation Yes Manual Lymphatic Drainage Yes Eval/Re-Eval Yes Frequency Times per week 2 Duration Number of Weeks 8 Addendums This patient is a candidate for social No or vocational rehab? Patient/Guardian verbally acknowledges Yes understanding of treatment program and consents to further treatment? Patient/Guardian verbally acknowledges Yes understanding of diagnosis, prognosis and goals for treatment? Eval Complexity PT Charges 17472 - Moderate Complexity Shoulder/Elbow Eval Shoulder Objective Measurements Elbow Objective Measurements PHYSICIAN CERTIFICATION: I certify the specified therapy services for Yifan Harris are required, authorized, and reviewed every 30 days.
== END 2025-03-17 23:59 | disposition home or self-care (01) ==
LOC: PT 09:43
PROVIDERS: PCP Family Medicine; Visit Provider Orthopaedic Surgery
DX: Z98.890 Other specified postprocedural states (principal); S93.05XA Dislocation of left ankle joint, initial encounter; S82.852A Displaced trimalleolar fracture of left lower leg, initial encounter for closed fracture
CPT/HCPCS: 97163

== ENCOUNTER 2025-04-01 09:17 | Outpatient (CLI) | payer BC, SELFPAY ==
--- NOTE | 2025-04-01 09:20 | XR_ITS ---
FINAL REPORT CLINICAL HISTORY: fell in desean pain..getting better FINDINGS: LEFT ANKLE Three views were obtained. There are sideplate and screws securing the distal fibula. Two screws are seen in the medial malleolus. The mortise is intact. On the lateral view, there is a well-corticated ossific density anterior to the mortise measuring about 5 mm consistent with an intra-articular loose body. There is a small plantar spur. IMPRESSION: Post surgical changes as detailed above. Loose body anterior to the mortise. Reviewed, Interpreted and Dictated by Brody Lau MD Transcribed by Megan Martinez Authenticated and [facility]
== END 2025-04-01 23:59 | disposition home or self-care (01) ==
LOC: RAD 09:17
PROVIDERS: PCP Family Medicine; Visit Provider Physician Assistant
DX: S82.852D Displaced trimalleolar fracture of left lower leg, subsequent encounter for closed fracture with routine healing (principal)
CPT/HCPCS: 73610

== ENCOUNTER 2025-04-10 13:00 | Outpatient (RCR) | payer BC, SELFPAY | END 2025-04-10 23:59 | disposition home or self-care (01) | LOC: PT 13:00 | PROVIDERS: Visit Provider Orthopaedic Surgery | DX: S93.05XA Dislocation of left ankle joint, initial encounter (principal) | CPT/HCPCS: 97110; 97140; 97530 ==